=== PATIENT | male | born 1960 | race Caucasian/White ===

== ENCOUNTER → 2022-03-03 09:31 | Outpatient (CLI) | payer OTHER, SELFPAY ==
[2022-03-03 10:55] LABS: COVID19 -Nasal RAPID Negative (Negative)
== END ==
PROVIDERS: PCP Student in an Organized Health Care Education/Training Program; Visit Provider Surgery
DX: Z20.822 Contact with and (suspected) exposure to COVID-19 (principal); Z01.812 Encounter for preprocedural laboratory examination
CPT/HCPCS: 87635; C9803

== ENCOUNTER 2022-03-04 10:31 | Day surgery (SDC) | payer OTHER, SELFPAY ==
[2022-03-01 11:40] VITALS: BMI 29.8
[2022-03-04 10:53] VITALS: BMI 29.8
[2022-03-04 11:09] VITALS: BP 130/97; PULSE 86; RESP 16; TEMP 35.9; O2SAT 96
[2022-03-04] MEDS: LACTATED RINGERS 1,000 ML 100 ML IV ×2 (11:28→14:02)
--- NOTE | 2022-03-04 12:06 | PM.PREOP ---
Pre-operative Note Interval Note History & Physical reviewed/Exam performed by Physician: Yes Changes to H&P: No
[2022-03-04] MEDS: CEFAZOLIN 2 GM/20 ML SYRINGE IV (12:42)
[2022-03-04] MEDS: BUPIVACAINE 0.25% (PF) VIAL 30 ML INJ (12:57)
--- NOTE | 2022-03-04 13:01 | SUR.OPER ---
Supine on padded OR bed, head on pillow, arms secured on padded arm boards at <90 degrees abduction, legs uncrossed, safety belt at thigh, tape over blanket over lower legs. Gel pad placed under bilateral heels.
--- NOTE | 2022-03-04 13:02 | SUR.OPER ---
Glasses placed in black glass case with patient label and placed in patients belongings bag. Bag then placed on wall timber incisor operator behind nursing station.
[2022-03-04 14:14] VITALS: BP 117/58; PULSE 87; RESP 14; TEMP 36.7; O2SAT 95
--- NOTE | 2022-03-04 14:18 | P.OP_ITS ---
Operative Date/Time/Diagnoses Date of procedure: 03/04/22 Time of procedure: 14:18 Pre-op diagnosis: Right inguinal hernia and umbilical hernia Post-op diagnosis: same Procedure & Clinicians Procedure: Open right inguinal hernia and open umbilical hernia repair with mesh Same procedure as scheduled: Yes Indications: Symptomatic right inguinal and umbilical hernia Surgeon: Justyn Mak Click Yes if Unassisted: Yes Anesthesia Type: General Operative Notes Findings: Umbilical. 2 cm fascial defect. Contains omentum Right inguinal-indirect defect only. No direct floor defect Specimen(s): none sent Estimated Blood Loss (mL): 20 Procedure in detail: Patient was brought to the operating room placed supine on the table. Bilateral lower extremity compression devices were applied. General anesthesia was induced and they were intubated with an endotracheal tube. They received 2 g of Ancef prior to skin incision. They were prepped and draped in sterile fashion. A time-out was performed. A curvilinear incision was made inferior to the umbilicus. The subcutaneous tissues were divided. The umbilical hernia was identified and the hernia sac was dissected off the umbilical skin and circumferentially off of the fascia defect. The hernia sac was sharply opened and contained viable omentum. The omentum was reduced back into the abdomen. Using blunt dissection I carefully carefully freed the hernia sac from beneath the fascia defect in order to accomodate the mesh. The fascia defect was 3 cm in maximal diameter. A Bard Ventralex ST hernia patch 8 cm was inserted beneath the fascia defect with the anti adhesive barrier face down. The mesh was anchored in multiple locations using Ethibond suture to the fascia and the fascial defect was closed over the mesh. The umbilical skin was tacked to the subcutaneous tissues and then the remainder of the subcutaneous tissues were reapproximated using 3 0 Vicry,l skin closed with 4 0 Monocryl followed by the application of Dermabond and Steri-Strips. The right external inguinal ring and the anterior superior iliac crest were kathie ntified and marked. 1 finger breath above the inguinal ligament the skin was infiltrated with 0.25% bupivacaine. The skin incision was made here and the subcutaneous tissues were divided with electrocautery exposing the external oblique aponeurosis which was then opened along the direction of its fibers. Using blunt dissection the internal oblique aporneurosis was from the external oblique upper leaflet to identify the iliohypogastric nerve. Using a kittner the cord was carefully dissected away from the inguinal canal adjacent to the pubic tubercle. The cord including the vas deferens, testicular bloody supply, ilioguinal and genital nerve were encircled with a Sobia drain. No direct floor defect was identified. The cremasteric fibers surrounding the cord were divided using electrocautery adjacent to the internal ring.. The vas deferens and the testicular vessels were preserved and protected. There was a small indirect hernia on the anterior medial aspect of the cord which was skeletonized away from the vas deferens and testicular blood supply. The indirect hernia was skeletonized back to the internal ring and reduced spontaneously into the abdomen. I selected a 7x 15 cm lightweight Pro Loop hernia mesh. The inferior medial aspect of the mesh was anchored to insertion of the rectus muscle to the pubic tubercle such that there was approximately 2 cm of tubercle overlap with Ethibond and then was run continuously along the inferior edge of the mesh to the shelving edge of the inguinal ligament. Interrupted 3 0 Vicryl suture was used to anchor the superior aspect of the mesh to the conjoined tendon in several places. The tails were then reapproximated loosely around the spermatic cord. The tails of the mesh were then tucked under the external oblique aponeurosis. The repair was checked for hemostasis. The wound was irrigated with sterile saline. The external oblique aponeurosis was reapproximated in a running fashion using 3 0 Vicryl. The subcutaneous tissues were reapproximated with 3 0 Vicryl skin closed with 4 0 Monocryl followed by the application of Dermabond. At the end of the operation I ensured that both testicles were within the scrotum. The sponge instrument count at the end operation was correct. The patient emerged from anesthesia was extubated and transferred to the postoperative care unit in stable condition. A total of 60 ml of of 0.25% bupivicaine was used to infiltrate the skin. Complications: none Post-operative Condition: stable Disposition: same day surgery
[2022-03-04 14:19] VITALS: BP 110/50; PULSE 83; RESP 16; O2SAT 95
[2022-03-04 14:24] VITALS: BP 129/67; PULSE 88; RESP 14; O2SAT 96
[2022-03-04 14:29] VITALS: BP 111/61; PULSE 87; RESP 16; O2SAT 95
[2022-03-04] MEDS: OXYCODONE/ACETAMINOPHEN 5/325 TABLET 1 TAB PO (14:32)
[2022-03-04 14:43] VITALS: BP 121/66; PULSE 88; RESP 16; TEMP 36.9; O2SAT 97
== END 2022-03-04 15:05 | disposition home or self-care (01) ==
PROVIDERS: PCP Student in an Organized Health Care Education/Training Program; Referring Provider Surgery; Visit Provider Surgery
PROC: (CPT 49505; principal; 2022-03-04 12:15)
DX: K42.9 Umbilical hernia without obstruction or gangrene (principal); K40.90 Unilateral inguinal hernia, without obstruction or gangrene, not specified as recurrent; J44.9 Chronic obstructive pulmonary disease, unspecified; I10 Essential (primary) hypertension
CPT/HCPCS: 49505; 49585; 82962; J0690

== ENCOUNTER 2022-04-15 11:51 | Emergency (ER) | payer OTHER, SELFPAY ==
[2022-04-15 12:03] VITALS: BP 185/107; PULSE 88; RESP 15; TEMP 36.1; O2SAT 99; BMI 30.1
--- NOTE | 2022-04-15 12:09 | DI.CT.S_ITS ---
PROCEDURE: CT HEAD/BRAIN WO CON INDICATIONS: fall,no thinners TECHNIQUE: Noncontrast 4.5 mm thick angled axial sections acquired from the foramen magnum to the vertex, with coronal and sagittal reformats. For radiation dose reduction, the following was used: automated exposure control, adjustment of mA and/or kV according to patient size. COMPARISON: None. FINDINGS: Image quality: Excellent. CSF spaces: Basal cisterns are patent. No extra-axial fluid collections. Ventricles are normal in size and shape. Brain: No midline shift. No acute intracranial hemorrhage. There is a 1.1 x 1.1 x 1.2 cm uniformly hyperdense, well-circumscribed mass in the foramen of Monro. No adjacent edema. Matias-white matter interface is normal. Skull and face: Prominent left periorbital soft tissue swelling. No visible underlying fracture, but refer to maxillofacial CT dictated separately. Sinuses: Mucosal thickening involving both maxillary sinuses and scattered adherent opacities throughout the ethmoid air cells. There has been sinus surgery on maxillary and sphenoid sinuses. Mastoid cavities are aerated. Left frontal sinus is hypoplastic. The right is clear. IMPRESSION: 1. No acute intracranial hemorrhage. 2. 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 Contrast-enhanced MRI for confirmation and follow-up imaging to assess for developing hydrocephalus is recommended. 3. Left periorbital soft tissue swelling without visible underlying fracture. Please see separately dictated maxillofacial CT report. Dictated by: Margo Downs M.D. on 04/15/2022 at 13:32 Approved by: Margo Downs M.D. on 04/15/2022 at 13:40
--- NOTE | 2022-04-15 12:09 | DI.CT.S_ITS ---
PROCEDURE: CT FACIAL BONES WO CON INDICATIONS: fall,no thinners TECHNIQUE: Noncontrast 2.5 mm thick axial images acquired from the mandible through the frontal sinuses, with coronal and sagittal reformatting. For radiation dose reduction, the following was used: automated exposure control, adjustment of mA and/or kV according to patient size. COMPARISON: None. FINDINGS: Image quality: Excellent. Bones and teeth: Orbital lopez are intact. Sinus lopez show no fracture or deformity. Nasal bones and septum are intact. Visualized portions of the mandible demonstrate no fractures or subluxation. Zygomatic arches are intact. Pterygoid plates are intact. Visualized portions of the skull base and auditory canals are intact. Incidental note made of 1.1 cm foramina of Monro mass. See previously dictated head CT report. Sinuses: Left frontal sinus is hypoplastic. Right frontal sinus demonstrates minor mucosal thickening at the outflow tract. Scattered mucosal thickening throughout the remaining ethmoid air cells. Mucosal thickening in the sphenoid sinus. There has been enlargement of the right sinus outflow tract. Maxillary antrostomies are present. Lobular mucosal thickening at the base of the right maxillary sinus and minor mucosal thickening at the left. There are no acute fluid levels. Soft tissues: Moderate left periorbital soft tissue swelling. The globe is intact. Extraocular muscles appear normal. No debris or radiodense foreign body. No edema, masses, or fluid collections. No enlarged lymph nodes. Vascular: Visualized vascular structures appear normal in the absence of contrast. Bony vascular foramina and canals are intact. IMPRESSION: 1. No visible fractures underlying moderate left periorbital soft tissue swelling. 2. Chronic pansinusitis post surgical interventions. Dictated by: Margo Downs M.D. on 04/15/2022 at 13:40 Approved by: Margo Downs M.D. on 04/15/2022 at 13:47
--- NOTE | 2022-04-15 12:09 | DI.RAD.S_ITS ---
PROCEDURE: XR WRIST LT MIN 3V INDICATIONS: fall,no thinners TECHNIQUE: Four views of the wrist were acquired. COMPARISON: None. FINDINGS: Bones: Findings suggestive of an intra-articular radial styloid fracture, but a discrete fracture plane is suboptimally seen on these images. Very slight ulnar negative variance. Distal radioulnar joint and radiocarpal alignment are otherwise normal. Osseous excrescence arising dorsally from the triquetrum. Scaphoid view: Intact scaphoid. Mild degenerative spurring present at the 1st carpometacarpal joint. Soft tissues: No suspicious soft tissue calcifications. Dorsal soft tissue swelling. IMPRESSION: 1. Findings suspicious for intra-articular nondisplaced radial styloid fracture. Dictated by: Margo Downs M.D. on 04/15/2022 at 12:53 Approved by: Margo Downs M.D. on 04/15/2022 at 12:56
--- NOTE | 2022-04-15 12:22 | PC.NURSE ---
Pt reports he takes lisinopril, educated pt lisinopril is a blood pressure medication and not a blood thinning medication, pt verbalizes understanding.
[2022-04-15 14:32] VITALS: BP 182/112
--- NOTE | 2022-04-15 16:10 | ED_ITS ---
HPI - Fall <Rony Bobby PA-C - Last Filed: 04/17/22 20:02> General Chief Complaint: Fall Stated Complaint: Fall/Possible Lt Arm Break/Hit Face/Blood Thinners Time Seen by Provider: 04/15/22 14:32 Source: patient Mode of arrival: Ambulatory History of Present Illness HPI Narrative: Patient is a 61-year-old male who presents to the emergency room today with complaint left hand and wrist pain status post a fall this morning. Patient states he fell onto his face after turning to walk and tripped on a case of beer. Patient also states he hit his head and has a bruise to his face. Denies loss of consciousness or any neurologic concerns in relation to the fall. Also denies any other concerns at this time Related Data Home Medications Medication Instructions Recorded Confirmed fluticasone propionate [Flonase 2 intranasal DAILY 02/25/22 04/01/22 Allergy Relief] lisinopril 10 mg tablet 10 mg PO DAILY 02/25/22 04/01/22 sildenafil [Viagra] 50 mg PO PRN PRN Sexual Activity 02/25/22 04/01/22 fluticasone 250 mcg-salmeterol 50 1 ea inhalation DAILY 03/04/22 04/01/22 mcg/dose blistr powdr for inhalation (Advair Diskus) Previous Rx's Medication Instructions Recorded acetaminophen 325 mg capsule 650 mg PO QID PRN pain #60 caps 03/04/22 (Tylenol) docusate sodium 100 mg capsule 100 mg PO BID #30 caps 03/04/22 (Colace) ibuprofen 200 mg tablet 400 mg PO Q6H #60 tabs 03/04/22 Allergies Allergy/AdvReac Type Severity Reaction Status Date / Time No Known Drug Allergies Allergy Verified 04/15/22 12:03 Review of Systems <Rony Bobby PA-C - Last Filed: 04/17/22 20:02> Review of Systems Narrative: REVIEW OF SYSTEMS:. General: No weight change, generally healthy, no change in strength or exercise tolerance. No fever/chill. No fatigue. Head: Swelling to left eye. Eyes: Normal vision, no diplopia, no tearing, no scotomata, no pain. Ears: No change in hearing, no tinnitus, no bleeding, no vertigo. Nose: No epistaxis, no coryza, no obstruction, no discharge. Mouth: No dental difficulties, no gingival bleeding, no use of dentures. Neck: No stiffness, no pain, no tenderness, no noted masses. Chest: No dyspnea, no wheezing, no hemoptysis, no cough. Heart: No chest pains, no palpitations, no syncope, no orthopnea. Abdomen: No change in appetite, no dysphagia, no abdominal pains, no bowel habit changes, no emesis, no melena. Musculoskeletal: Pain and swelling to left wrist hand and arm area. Neurologic: No weakness, no tremor, no seizures, no changes in mentation, no ataxia. Psychiatric: No depressive symptoms, no changes in sleep habits, no changes in thought content.. Patient History <Rony Bobby PA-C - Last Filed: 04/17/22 20:02> Medical History COPD (chronic obstructive pulmonary disease) Surgical History H/O sinus surgery Social History household members: spouse Smoking Status: Never smoker alcohol intake: current Smoking Status: Never smoker alcohol intake frequency: 0-2 drinks per day Substance Use Type: does not use Exam <Rony Bobby PA-C - Last Filed: 04/17/22 20:02> Narrative Exam Narrative: Physical Exam: General: Normal appearance, well developed, well nourished, alert, and awake. Not in acute distress. ? Head: Patient has a large amount of swelling to the left orbital area. Left eye as no redness or erythema in the bulbar erythema area. Patient also has an abrasion to the lateral bulbar area and a mild abrasion to the left cheek area. ? Eyes: PERRLA, EOM's full, conjunctivae clear. ? Ears: EAC's clear, TM's normal. ?? Throat: Clear, no exudates, no lesions. ?? Neck: Supple, no masses, no thyromegaly, no bruits. ?? Chest: Lungs clear, no rales, no rhonchi, no wheezes. ?? Heart: RR, no murmurs, no rubs, no gallops. ?? Neuro: Physiological, no localizing findings, CN2-12 intact. ?? Extremities: Warm, well perfused, FROM, no deformities, no edema, no erythema. ?? PSYCHIATRIC: The mood is good, no blunted affect. Speech is clear. Thought process is linear, thought content is appropriate. The voice is without significant inflection.. Musculoskeletal: Patient has pain and tenderness swelling on the left wrist. Pain is focused at the left dorsal wrist at the base of the radius. Patient has limited range of motion due to swelling and pain. Patient able to make fist but with weakness. Initial Vital Signs Initial Vital Signs: Vital Signs Temperature 97.0 F L 04/15/22 12:03 Pulse Rate 88 04/15/22 12:03 Respiratory Rate 15 04/15/22 12:03 Blood Pressure 185/107 H 04/15/22 12:03 Pulse Oximetry 99 04/15/22 12:03 Oxygen Delivery Method 04/15/22 12:03 <Jenn Kenny DO - Last Filed: 04/20/22 07:06> Initial Vital Signs Initial Vital Signs: Vital Signs Temperature 97.0 F L 04/15/22 12:03 Pulse Rate 88 04/15/22 12:03 Respiratory Rate 15 04/15/22 12:03 Blood Pressure 185/107 H 04/15/22 12:03 Pulse Oximetry 99 04/15/22 12:03 Oxygen Delivery Method 04/15/22 12:03 Course <Rony Bobby PA-C - Last Filed: 04/17/22 20:02> Orders Ordered: ED Orders 04/15/22 12:09 CT facial bones wo con Stat CT head/brain wo con Stat XR wrist LT min 3V Stat Vital Signs Vital signs: Vital Signs - 8 hr 04/15/22 12:03 04/15/22 14:32 Temperature 97.0 F L Pulse Rate 88 Respiratory Rate 15 Blood Pressure 185/107 H 182/112 H Pulse Oximetry 99 Oxygen Delivery Method Room Air <DO Hailey Carlson Last Filed: 04/20/22 07:06> Orders Ordered: ED Orders 04/15/22 12:09 CT facial bones wo con Stat CT head/brain wo con Stat XR wrist LT min 3V Stat Vital Signs Vital signs: Vital Signs - 8 hr 04/15/22 12:03 04/15/22 14:32 Temperature 97.0 F L Pulse Rate 88 Respiratory Rate 15 Blood Pressure 185/107 H 182/112 H Pulse Oximetry 99 Oxygen Delivery Method Room Air MDM - Fall <Rony Bobby PA-C - Last Filed: 04/17/22 20:02> Imaging Data Extremity x-ray #1: Radiologist's Impression: PROCEDURE:? XR WRIST LT MIN 3V ? INDICATIONS: fall,no thinners ? TECHNIQUE:? Four views of the wrist were acquired.? ? COMPARISON:? None. ? FINDINGS:? ? Bones:? Findings suggestive of an intra-articular radial styloid fracture, but a discrete fracture plane is suboptimally seen on these images.? Very slight ulnar negative variance.? Distal radioulnar joint and radiocarpal alignment are otherwise normal.? Osseous excrescence arising dorsally from the triquetrum. ? Scaphoid view:? Intact scaphoid.? Mild degenerative spurring present at the 1st carpometacarpal joint. ? Soft tissues:? No suspicious soft tissue calcifications.? Dorsal soft tissue swelling. ? IMPRESSION:? ? 1. Findings suspicious for intra-articular nondisplaced radial styloid fracture. ? ? Dictated by: Margo Downs M.D. on 04/15/2022 at 12:53 ? ? Approved by: Margo Downs M.D. on 04/15/2022 at 12:56 ? CT scan - head: Radiologist's Impression: PROCEDURE:? CT HEAD/BRAIN WO CON ? INDICATIONS:? fall,no thinners ? TECHNIQUE:? Noncontrast 4.5 mm thick angled axial sections acquired from the foramen magnum to the vertex, with coronal and sagittal reformats.? For radiation dose reduction, the following was used:? automated exposure control, adjustment of mA and/or kV according to patient size.? ? COMPARISON:? None. ? FINDINGS:? Image quality:? Excellent.? ? CSF spaces:? Basal cisterns are patent.? No extra-axial fluid collections.? Ventricles are normal in size and shape.? ? Brain:? No midline shift.? No acute intracranial hemorrhage.? There is a 1.1 x 1.1 x 1.2 cm uniformly hyperdense, well-circumscribed mass in the foramen of Monro.? No adjacent edema.? Matias-white matter interface is normal.? ? Skull and face:? Prominent left periorbital soft tissue swelling.? No visible underlying fracture, but refer to maxillofacial CT dictated separately.? ? Sinuses:? Mucosal thickening involving both maxillary sinuses and scattered adherent opacities throughout the ethmoid air cells.? There has been sinus surgery on maxillary and sphenoid sinuses.? Mastoid cavities are aerated.? Left frontal sinus is hypoplastic.? The right is clear. ? IMPRESSION:? ? 1. No acute intracranial hemorrhage. ? 2. 1.2 cm homogeneous foramina of Monro mass consistent with a colloid cyst.? Contrast-enhanced MRI for confirmation and follow-up imaging to assess for developing hydrocephalus is recommended. ? 3. Left periorbital soft tissue swelling without visible underlying fracture.? Please see separately dictated maxillofacial CT report.? ? ? Dictated by: Margo Downs M.D. on 04/15/2022 at 13:32 ? ? Approved by: Margo Downs M.D. on 04/15/2022 at 13:40 ? CT Face: Radiologist's Impression: PROCEDURE:? CT FACIAL BONES WO CON ? INDICATIONS:? fall,no thinners ? TECHNIQUE:? Noncontrast 2.5 mm thick axial images acquired from the mandible through the frontal sinuses, with coronal and sagittal reformatting.? For radiation dose reduction, the following was used:? automated exposure control, adjustment of mA and/or kV according to patient size.? ? COMPARISON:? None. ? FINDINGS:? Image quality:? Excellent.? ? Bones and teeth:? Orbital lopez are intact.? Sinus lopez show no fracture or deformity.? Nasal bones and septum are intact.? Visualized portions of the mandible demonstrate no fractures or subluxation.? Zygomatic arches are intact.? Pterygoid plates are intact.? Visualized portions of the skull base and auditory canals are intact.? Incidental note made of 1.1 cm foramina of Monro mass.? See previously dictated head CT report. ? Sinuses:? Left frontal sinus is hypoplastic.? Right frontal sinus demonstrates minor mucosal thickening at the outflow tract.? Scattered mucosal thickening throughout the remaining ethmoid air cells.? Mucosal thickening in the sphenoid sinus.? There has been enlargement of the right sinus outflow tract.? Maxillary antrostomies are present.? Lobular mucosal thickening at the base of the right maxillary sinus and minor mucosal thickening at the left.? There are no acute fluid levels. ? Soft tissues:? Moderate left periorbital soft tissue swelling.? The globe is intact.? Extraocular muscles appear normal.? No debris or radiodense foreign body.? No edema, masses, or fluid collections.? No enlarged lymph nodes.? ? Vascular:? Visualized vascular structures appear normal in the absence of contrast.? Bony vascular foramina and canals are intact.? ? IMPRESSION:? ? 1. No visible fractures underlying moderate left periorbital soft tissue swelling. ? 2. Chronic pansinusitis post surgical interventions.? ? ? Dictated by: Margo Downs M.D. on 04/15/2022 at 13:40 ? ? Approved by: Margo Downs M.D. on 04/15/2022 at 13:47 ? MDM Narrative Medical decision making narrative: Patient is a 61-year-old male presents to the emergency room today with complaint of swelling to the left eye and left wrist hand pain and swelling after fall this morning at about 7:00 a.m.. X-ray reveals a nondisplaced radial styloid fracture. Sugar-tong splint placed and patient advised to follow-up with Dr. Palomino in Ortho. CT and face lb were negative. Neurological exam done and patient cranial nerves 2 12 are intact. Styloid fracture and splint care and concerns discussed with the patient. Patient advised to return to the emergency room should any emergent concerns arise patient agrees with plan Discharge Plan Departure Patient Disposition: Home Clinical Impression: Fracture of wrist Instructions: Wrist Fracture Activity Restrictions/Additional Instructions: *You have been diagnosed with [Radius Styloid Fracture to your left wrist. You have been referred to Dr. Palomino and Orthopedic surgery. Their phone number is [phone] I suggest to call the office on Monday. A splint has also been placed on your forearm and wrist and I suggest you maintain the splint until you follow-up with ortho. Also suggest she continue to take nonsteroidal anti- inflammatories for pain. Please loosen her remove the splint if you notice any numbness swelling or loss of sensation in your left hand. Also suggest to return to the emergency room should any more emergent concerns arise.] *What to do: *Please continue to take your regular medications as directed. [ ] New medication prescriptions sent to your pharmacy: [ ] [ ] New medication written as a paper prescription [x] No new medications given *Please follow up with your primary care provider in 2-3 days, call for an appointment. Let them know you were seen in the Emergency Department and that we ask that you be seen in follow up. We will electronically transmit a record of today's note if your PCP is in our system *If you do not have a primary care provider please contact the [facility] Resource line at [phone]. They will ask some questions about your medical history and help get you set up with a doctor in the community. *Return to Emergency Department if you should have any new, worsening or concerning symptoms, such as [fever greater than 101 F, shaking chills, worsening pain, persistent vomiting or other bothersome symptoms] Prescriptions: No Action fluticasone propionate [Flonase Allergy Relief] 2 intranasal DAILY lisinopril 10 mg tablet 10 mg PO DAILY sildenafil [Viagra] 50 mg PO PRN PRN (Reason: Sexual Activity) fluticasone propion-salmeterol [Advair Diskus] 250-50 mcg/dose blister with device 1 ea INHALATION DAILY ibuprofen 200 mg tablet 400 mg PO Q6H Qty: 60 0RF docusate sodium [Colace] 100 mg capsule 100 mg PO BID Qty: 30 0RF acetaminophen [Tylenol] 325 mg capsule 650 mg PO QID PRN (Reason: pain) Qty: 60 0RF Referrals: Liss Woods MD [Primary Care Provider] - Rohan Palomino MD [Physician] - (Patient to follow up with Ortho s/p Radius Styloid Fx to left wrist) Visit Report Forms: Patient Portal/API <Jenn Kenny DO - Last Filed: 04/20/22 07:06> [facility] ED Attending Yadielature Attestation: I was immediately available in the department for consultation. Documentation has been reviewed. I agree with assessment and plan.
[2022-04-15 16:34] VITALS: BP 151/99; PULSE 99; RESP 18; O2SAT 97
== END 2022-04-15 16:43 | disposition home or self-care (01) ==
PROVIDERS: Emergency Provider Physician Assistant; PCP Student in an Organized Health Care Education/Training Program
DX: S62.102A Fracture of unspecified carpal bone, left wrist, initial encounter for closed fracture (principal); W19.XXXA Unspecified fall, initial encounter
CPT/HCPCS: 70450; 70486; 73110; 99284